=== PATIENT | male | born 1995 | race African-American/Black ===

== ENCOUNTER 2021-06-06 20:17 | Emergency (ER) | payer MEDICAID ==
[~2021-06-06] VITALS: Ht 185.4 cm; Wt 63.6 kg
[2021-06-06 21:12] VITALS: BP 112/70
== END 2021-06-06 23:17 | disposition left against medical advice (07) ==
LOC: EMS 20:18
DX: R51.9 Headache, unspecified (principal); Z53.21 Procedure and treatment not carried out due to patient leaving prior to being seen by health care provider